=== PATIENT | male | born 1955 | race Caucasian/White ===

== ENCOUNTER 2024-11-21 06:58 | Emergency (ER) | payer MEDICARE, SELFPAY ==
[2024-11-21] VITALS (11 sets, daily range): BP systolic 143–157; BP diastolic 64–78; PULSE 63–86; RESP 12–20; TEMP 36.6; O2SAT 93–99
--- NOTE | ~2024-11-21 | XR_ITS ---
Examination: XR chest 2V Clinical History: weakness Comparison: None Technique: PA and Lateral Findings: Cardiomediastinal silhouette normal size and configuration. Lungs clear. No acute bony abnormality. Osteopenia. IMPRESSION: 1. No acute cardiopulmonary findings. Reviewed, dictated and finalized at location R.
--- NOTE | ~2024-11-21 | CT_ITS ---
EXAMINATION: CT brain wo con DATE: 11/21/2024 09:24 INDICATION: Fall. TECHNIQUE: Computed tomography (CT) of the head was performed without intravenous contrast. The mA was adjusted according to patient size. Iterative reconstruction technique was employed. The dose-length product was 681.00 mGy-cm. COMPARISON: None FINDINGS: There are scattered areas of low attenuation in the cerebral white matter. There is no intracranial hemorrhage, acute infarction, or abnormal intracranial mass lesion. The ventricles are normal in size. The orbits are normal. There is mucosal thickening in the paranasal sinuses. There is thic kening and sclerosis of the obrien of the maxillary sinuses, consistent with chronic sinusitis. The mastoid air cells are normal. There are old fracture deformities of the nasal bones. IMPRESSION: 1. Moderate nonspecific cerebral white matter disease, which likely represents chronic small vessel ischemic disease. 2. Chronic sinusitis. Reviewed, dictated and finalized at location E.
--- NOTE | 2024-11-21 07:01 | ECG_ITS ---
Test Date: 2024-11-21 07:08:04 Measurements Intervals [place] Rate: 63 P: 19 TN: 257 QRS: 32 QRSD: 93 T: 46 QT: 402 QTc: 412 Interpretive Statements SINUS RHYTHM WITH FIRST DEGREE AV BLOCK No previous ECG available for comparison Electronically Signed On 11-21-2024 14:25:56 CDT by Jaxson Palencia M.D.
[2024-11-21 07:09] LABS: Hematocrit 42.5 % (42.0-52.0); Hemoglobin 14.5 g/dL (14.0-18.0); Immature Granulocyte Percent A 1.0 % (0-0.5); Lymphocytes Absolute Auto 3.29 K/mm3 (0.9-3.2); Mean Corpuscular HGB Conc 34.1 g/dl (32-36); Mean Corpuscular Hemoglobin 36.3 pg (26-34); Mean Corpuscular Volume 106.5 fl (80-100); Nucleated Red Blood Cells Absolute Auto 0.000 K/mm3 (0.0-0.012); Nucleated Red Blood Cells Perc 0.0 % (0.0-0.2); Platelet Count Result 281 k/mm3 (150-375); Red Blood Count 3.99 M/mm3 (4.6-6.20); White Blood Count 10.5 K/mm3 (4.5-10.0)
[2024-11-21 07:27] LABS: Alanine Aminotransferase 61 U/L (6-50); Albumin Level 4.2 g/dL (3.5-5.1); Alkaline Phosphatase 70 U/L (38-126); Anion Gap 15 mmol/L (4-12); Aspartate Amino Transferase 76 U/L (17-59); Bilirubin,Total 0.8 mg/dL (0.2-1.3); Blood Urea Nitrogen 6 mg/dL (9-20); Calcium 9.2 mg/dL (8.4-10.2); Carbon Dioxide 23 mmol/L (22-30); Chloride 102 mmol/L (98-107); Estimated CRCL calculation 93 ml/min; Estimated Glomerular Filt Rate > 60; Glucose 95 mg/dL (65-110); Potassium 3.6 mmol/L (3.4-5.0); Sodium 140 mmol/L (137-145); Total Protein 8.5 g/dL (6.3-8.2)
[2024-11-21 07:33] LABS: Schistocytes None Seen
[2024-11-21 07:34] LABS: Macrocytosis 1+ (NORMAL)
--- NOTE | 2024-11-21 07:57 | PC.NURSE ---
Malini RossVmzcuh-[phone]-patient's POA and will be patient's ride home when discharged.
--- NOTE | 2024-11-21 08:02 | ED.WEAKNESS ---
HPI - Weakness General Chief complaint: Weakness Stated complaint: fall Time Seen by Provider: 11/21/24 07:04 History of Present Illness HPI Narrative: Patient is a 69-year-old male who presents ER after having a fall at home. Reports he stubbed his toe then fell backwards onto his butt. He did not strike his head or lose consciousness. 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 Patient is alert oriented to self/date/place. He has no additional concept about who his physician is, what medicines he may take, if he has any medical diagnoses, or other at factual details about himself. He does state occasionally he stares off into space and that may be it last for an hour, no diagnosis of seizure history per him. That did not happen today. Related Data Allergies Allergy/AdvReac Type Severity Reaction Status Date / Time No Known Allergies Allergy Verified 11/21/24 07:35 Review of Systems Review of Systems: ROS unobtainable: Yes unobtainable due to mental status PMFSH Past Medical History Medical History (Updated 11/21/24 @ 11:06 by Chase Strickland MD) Mood disorder Surgical History Surgical History (Updated 11/21/24 @ 11:06 by Chase Strickland MD) No pertinent past surgical history Course Course Emergency Course: Patient resting comfortably. Mild leukocytosis, mild transaminitis, COVID positive. Ambulatory with a steady gait and no hypoxia. Vital Signs Vital signs: Vital Signs Temperature 97.8 F 11/21/24 06:50 Pulse Rate 66 11/21/24 06:50 Respiratory Rate 17 11/21/24 06:50 Blood Pressure 149/64 H 11/21/24 06:50 Pulse Oximetry 99 11/21/24 06:50 Oxygen Delivery Room Air 11/21/24 06:50 Temperature 97.8 F 11/21/24 06:50 Pulse Rate 78 11/21/24 09:00 Respiratory Rate 12 11/21/24 09:00 Blood Pressure 143/68 H 11/21/24 09:00 Pulse Oximetry 98 11/21/24 09:00 Oxygen Delivery Room Air 11/21/24 06:50 MDM - Weakness Lab Data 11/21/24 07:02 11/21/24 07:02 Labs: Lab Results 11/21/24 11/21/24 11/21/24 Range/Units 07:02 07:28 10:10 WBC 10.5 H (4.5-10.0) K/mm3 RBC 3.99 L (4.6-6.20) M/mm3 Hgb 14.5 (14.0-18.0) g/dL Hct 42.5 (42.0-52.0) % MCV 106.5 H (80-100) fl MCH 36.3 H (26-34) pg MCHC 34.1 (32-36) g/dl RDW 14.6 H (11.5-14.5) % Plt Count 281 (150-375) k/mm3 MPV 10.9 H (7.4-10.4) fl Immature Gran % (Auto) 1.0 H (0-0.5) % Neut % (Auto) 54.5 (45.5-73.1) % Lymph % (Auto) 31.3 (18.3-44.2) % [place] % (Auto) 8.8 H (2.6-8.5) % Eos % (Auto) 2.9 (0-4.4) % Baso % (Auto) 1.5 H (0.2-1.2) % Lymph # (Auto) 3.29 H (0.9-3.2) K/mm3 [place] # (Auto) 0.9 H (0.1-0.6) K/mm3 Eos # (Auto) 0.3 (0-0.3) K/mm3 Baso # (Auto) 0.2 H (0.0-0.1) K/mm3 Abs Immat Gran (auto) 0.10 H (0.00-0.031) K/mm3 Absolute Neuts (auto) 5.7 (1.3-6.7) K/mm3 Absolute Nucleated RBC 0.000 (0.0-0.012) K/mm3 Band Neutrophils % Not Reportable Nucleated RBC % 0.0 (0.0-0.2) % Atypical Lymphocytes Present Platelet Estimate Adequate (Adequate) Macrocytosis 1+ (NORMAL) Schistocytes None seen Sodium 140 (137-145) mmol/L Potassium 3.6 (3.4-5.0) mmol/L Chloride 102 (98-107) mmol/L Carbon Dioxide 23 (22-30) mmol/L Anion Gap 15 H (4-12) mmol/L BUN 6 L (9-20) mg/dL Creatinine 0.75 (0.7-1.3) mg/dL Estim Creat Clear Calc 93 ml/min Estimated GFR > 60 (59 - ) Glucose 95 (65-110) mg/dL Calcium 9.2 (8.4-10.2) mg/dL Total Bilirubin 0.8 (0.2-1.3) mg/dL AST 76 H (17-59) U/L ALT 61 H (6-50) U/L Alkaline Phosphatase 70 (38-126) U/L Total Protein 8.5 H (6.3-8.2) g/dL Albumin 4.2 (3.5-5.1) g/dL Urine Color Yellow (Yellow) Urine Appearance Clear (Clear) Urine pH 6.5 (5.0-9.0) Ur Specific [place] 1.008 (1.001-1.035) Urine Protein Negative (Negative) mg/dL Urine Glucose (UA) Negative (Negative) mg/dL Urine Ketones Negative (Negative) mg/dL Ur Blood (Man) Negative (Negative) Urine Nitrate Negative (Negative) Urine Bilirubin Negative (Negative) Urine Urobilinogen 1.0 (<2.0) mg/dL Leukocyte Esterase Rfl Negative (Negative) DILAN/UL Influenza A (RT-PCR) Negative (Negative) Influenza B (RT-PCR) Negative (Negative) RSV (RT-PCR) Negative (Negative) SARS-CoV-2 RNA (RT-PCR) Positive A (Negative) Imaging Data Radiologist's impression: ITS Impressions Chest X-Ray 11/21/24 08:07 IMPRESSION: 1. No acute cardiopulmonary findings. Head CT 11/21/24 09:25 IMPRESSION: 1. Moderate nonspecific cerebral white matter disease, which likely represents chronic small vessel ischemic disease. 2. Chronic sinusitis. Discharge Plan Discharge Clinical Impression: COVID Patient Disposition: Home Condition: Stable Instructions: COVID-19 (Coronavirus Disease 2019) (ED) Additional Instructions: As discussed you have a viral illness. Unfortunately there are no specific medications we can give you to make the illness end faster. Antibiotics do not work for viral illnesses. However, you can take Acetaminophen or Ibuprofen to help with fevers and pain. Stay well hydrated and rested. Return to the emergency department if your fevers and chills continue to worse after 5 days, if you develop worsening cough with thick sputum, or are unable to stay hydrated. Contact your primary care provider in the next few days for a re-evaluation and to make sure your symptoms are improving. Patient Language: Moldovan Follow-up/Referrals: Agnes Velázquez MD [Physician, Family Practice] - 1 Week UNKNOWN,DOCTOR [Primary Care Provider]
[2024-11-21 08:11] LABS: Influenza A QL RT-PCR Negative (Negative); Influenza B QL RT-PCR Negative (Negative); RSV RNA, RT-PCR Negative (Negative); SARS-CoV-2 RNA PCR Positive (Negative)
[2024-11-21] MEDS: SODIUM CHLORIDE 0.9% IV 1,000 ML 999 ML IV CONT (08:25)
[2024-11-21 10:16] LABS: Add Urine Microscopic? NO; Appearance Urine Clear (Clear); Glucose Urine UA Negative (Negative); Leukocyte Esterase Ur Negative LEU/UL (Negative); Nitrate Urine Negative (Negative); Specific Grav Ur 1.008 (1.001-1.035)
== END 2024-11-21 12:29 | disposition home or self-care (01) ==
PROVIDERS: Emergency Medicine; Emergency Provider Emergency Medicine
DX: Z04.3 Encounter for examination and observation following other accident (principal); U07.1 COVID-19; I44.0 Atrioventricular block, first degree; J32.9 Chronic sinusitis, unspecified; R90.82 White matter disease, unspecified; W01.0XXA Fall on same level from slipping, tripping and stumbling without subsequent striking against object, initial encounter
CPT/HCPCS: 36415; 70450; 71046; 80053; 81003; 85025; 87637; 93005; 96360; 99284; J7030